=== PATIENT | female | born 2000 | race African-American/Black ===

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

== ENCOUNTER 2019-08-26 18:11 | Emergency (ER) | payer MEDICAID, OTHER ==
[~2019-08-26] VITALS: Ht 162.6 cm; Wt 69.4 kg
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
--- NOTE | 2019-08-26 18:37 | NUR ---
Nakia CARDENAS at bedside
[2019-08-26] MEDS ORDERED: TRAMADOL HCL 50 MG TABLET ONE (18:59)
[2019-08-26] MEDS ORDERED: TRAMADOL HCL 50 MG TABLET PO ONE (19:00)
[2019-08-26] MEDS ORDERED: IBUPROFEN 400 MG TABLET PO ONE (19:00)
--- NOTE | 2019-08-26 19:40 | NUR ---
Patient discharged to home in stable condition. Written and verbal after care instructions given. Patient verbalizes understanding of instruction. PT AMBULATED OUT WITH A STEADY GAIT. VSS.
[2019-08-26 20:01] VITALS: BP 110/79
== END 2019-08-26 19:40 | disposition home or self-care (01) ==
LOC: ER 18:17
DX: M25.571 Pain in right ankle and joints of right foot (principal); M25.572 Pain in left ankle and joints of left foot; Z88.6 Allergy status to analgesic agent; Z88.5 Allergy status to narcotic agent
CPT/HCPCS: 73610-TC

== ENCOUNTER 2019-12-15 00:44 | Emergency (ER) | payer MEDICAID ==
[~2019-12-15] VITALS: Ht 162.6 cm; Wt 66.7 kg
[2019-12-15 00:52] VITALS: BP 140/72
--- NOTE | 2019-12-15 01:06 | NUR ---
PATIENT REFUSED INFLUENZA SWAB. "I DON'T WANT THAT THING UP MY NOSE!".
--- NOTE | 2019-12-15 01:23 | NUR ---
SWAB SAMPLE OBTAINED AND SENT TO LAB
--- NOTE | 2019-12-15 01:45 | NUR ---
Patient discharged to home in stable condition. Written and verbal after care instructions given. Patient verbalizes understanding of instruction.
== END 2019-12-15 01:46 | disposition home or self-care (01) ==
LOC: ER 00:46
DX: J06.9 Acute upper respiratory infection, unspecified (principal); J02.9 Acute pharyngitis, unspecified; R09.81 Nasal congestion; J45.909 Unspecified asthma, uncomplicated; Z88.8 Allergy status to other drugs, medicaments and biological substances; Z88.5 Allergy status to narcotic agent; Z88.6 Allergy status to analgesic agent

== ENCOUNTER 2020-04-05 03:06 | Emergency (ER) | payer MEDICAID ==
[~2020-04-05] VITALS: Ht 162.6 cm; Wt 72.6 kg
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
[2020-04-05] MEDS ORDERED: HYDROCODONE/APAP 10/325MG 1 EA TABLET ONE (03:49)
[2020-04-05] MEDS ORDERED: HYDROCODONE/APAP 7.5/325MG 1 EACH TABLET PO ONE (04:00)
[2020-04-05] MEDS ORDERED: HYDROCODONE/APAP 10/325MG 1 EA TABLET PO ONE (04:00)
--- NOTE | 2020-04-05 04:01 | NUR ---
[facility] ETA [id number]
--- NOTE | 2020-04-05 04:07 | NUR ---
PT KEPT COMFORTABLE. PT STATES SHE FEELS BETTER.
--- NOTE | 2020-04-05 06:06 | NUR ---
PT RESTING COMFORTABLY IN BED. VSS. NO ACUTE DISTRESS NOTED.
[2020-04-05] MEDS ORDERED: HYDROCODONE/APAP 5/325MG 1 EACH TABLET ONE (06:13)
[2020-04-05] MEDS ORDERED: HYDROCODONE/APAP 5/325MG 1 EACH TABLET PO ONE (06:30)
--- NOTE | 2020-04-05 07:15 | NUR ---
REPORT GIVEN TO EMS. PT STABLE TO DC HOME
[2020-04-05 07:16] VITALS: BP 114/84
--- NOTE | 2020-04-05 07:16 | NUR ---
Patient discharged to home in stable condition. Written and verbal after care instructions given. Patient verbalizes understanding of instruction.
== END 2020-04-05 07:16 | disposition home or self-care (01) ==
LOC: ER 03:12
DX: G89.18 Other acute postprocedural pain (principal); J45.909 Unspecified asthma, uncomplicated; Z88.6 Allergy status to analgesic agent; Z88.5 Allergy status to narcotic agent

== ENCOUNTER 2020-05-28 10:26 | Emergency (ER) | payer MEDICAID, OTHER ==
[~2020-05-28] VITALS: Ht 162.6 cm; Wt 66.7 kg
--- NOTE | 2020-05-28 10:39 | NUR ---
CAME IN VIA WHEELCHAIR FOR FOUL SMELLING URINE, CRAMPING X 1 WEEK, TO ER BED 10, HOOKED TO BP CUFF AND POX, CHANGED TO HOSP GOWN, WARM BLANKET PROVIDED, PATIENT AAO x 4, BREATHING EVEN AND UNLABORED, NOT IN RESPIRATORY DISTRESS. DR GROSSMAN AT BEDSIDE FOR EVAL.
[2020-05-28 10:56] LABS: APPEARANCE,URINE Clear (CLEAR); BILIRUBIN,URINE Negative (NEGATIVE); BLOOD, URINE Negative Ery/uL (NEGATIVE); COLOR,URINE Yellow (YELLOW); KETONES,URINE Negative (NEGATIVE); LEUKOCYTE ESTERASE ,URINE Trace (NEGATIVE); NITRITE, URINE Negative (NEGATIVE); PH,URINE 8.5 (5.0-8.0); PROTEIN,URINE Negative (NEGATIVE); UGLUCOSE Negative (NEGATIVE); UROBILINOGEN,URINE 0.2 EU/dL (0.2)
[2020-05-28 10:59] LABS: BACTERIA,URINE Few /HPF (None Seen); RBC,URINE 0-2 /HPF (0-2); SQUAMOUS EPITHELIAL CELL,UR Few /HPF (None Seen)
--- NOTE | 2020-05-28 11:26 | NUR ---
Patient discharged to home in stable condition. Written and verbal after care instructions given. Patient verbalizes understanding of instruction.
[2020-05-28 11:27] VITALS: BP 118/60
== END 2020-05-28 11:27 | disposition home or self-care (01) ==
LOC: ER 10:31
DX: N93.8 Other specified abnormal uterine and vaginal bleeding (principal); Z71.1 Person with feared health complaint in whom no diagnosis is made; J45.909 Unspecified asthma, uncomplicated; Z88.6 Allergy status to analgesic agent; Z88.5 Allergy status to narcotic agent
CPT/HCPCS: 81000-TC; 84703-TC